=== PATIENT | male | born 1975 | race Caucasian/White ===

== ENCOUNTER 2019-10-31 07:34 | Emergency (ER) | payer OTHER ==
[2019-10-31 07:41] VITALS: BP 134/88; PULSE 76; TEMP 97.8; BMI 26.6
[2019-10-31] MEDS ORDERED: IBUPROFEN 400 MG TABLET (FP) PO ONE ×2 (07:55→07:59)
--- NOTE | 2019-10-31 08:05 | PDOC ---
History of Present Illness - General Chief Complaint: Injury Stated Complaint: FALL Time Seen by Provider: 10/31/19 07:46 History Source: Patient - History of Present Illness Occurred: reports: other Severity: reports: moderate Pain Location: reports: lower extremity Method of Injury: Yes: fall Past History - Past Medical History Allergies/Adverse Reactions: Allergies Allergy/AdvReac Type Severity Reaction Status Date / Time No Known Allergies Allergy Verified 10/31/19 07:41 Home Medications: Ambulatory Orders NK [No Known Home Medication] 10/31/19 COPD: No - Psycho Social/Smoking Cessation Hx Smoking Status: No Smoking History: Never smoked Number of Cigarettes Smoked Daily: 0 Review of Systems - Review of Systems Musculoskeletal: Yes: Joint Pain, Joint Swelling *Physical Exam - Vital Signs Last Vital Signs Temp Pulse Resp BP Pulse Ox 97.8 F 76 18 134/88 99 10/31/19 07:36 10/31/19 07:36 10/31/19 07:36 10/31/19 07:36 10/31/19 07:36 - Physical Exam General Appearance: Yes: Appropriately Dressed. No: Apparent Distress HEENT: positive: Normal Voice Neck: positive: Supple Respiratory/Chest: negative: Respiratory Distress Extremity: positive: Tender, Swelling (to lateral malleolus) Integumentary: positive: Dry, Warm Neurologic: positive: Fully Oriented, Alert, Normal Mood/Affect ED Treatment Course - RADIOLOGY Radiology Studies Ordered: Category Date Time Status ANKLE & FOOT-LEFT* [RAD] Stat Radiology 10/31/19 07:59 Ordered Medical Decision Making - Medical Decision Making 10/31/19 08:03 43-year-old male, no significant history, here with left ankle pain and swelling after trip and fall 3 days ago. States site was swollen initially but has been applying ice to area. States pain is getting worse. Has been bearing weight but very painful per patient not taking anything for pain see exam R/o ankle fx -pain control -XR 10/31/19 08:59 X-ray negative for fracture. John bandage placed in the ER. Crutches given. DC with supportive treatment and Ortho follow-up as needed Discharge - Discharge Information Problems reviewed: Yes Clinical Impression/Diagnosis: Ankle sprain Qualifiers: Encounter type: initial encounter Involved ligament of ankle: unspecified ligament Laterality: left Qualified Code(s): S93.402A - Sprain of unspecified ligament of left ankle, initial encounter Condition: Good Disposition: HOME - Follow up/Referral Referrals: Kane Duran MD [Staff Physician] - - Patient Discharge Instructions Patient Printed Discharge Instructions: Ankle Sprain Additional Instructions: Rest, elevate extremity, ice area and take motrin every 6 hrs as needed for pain If symptoms persist after 2 weeks, please follow up with DR Duran of orthopedics - Post Discharge Activity
== END 2019-10-31 09:04 | disposition home or self-care (01) ==
LOC: JER 07:34
DX: S93.402A Sprain of unspecified ligament of left ankle, initial encounter (principal); W18.39XA Other fall on same level, initial encounter; Y93.89 Activity, other specified; Y92.414 Local residential or business street as the place of occurrence of the external cause; Y99.8 Other external cause status
CPT/HCPCS: 73610-TC-LT-FY; 73630-TC-LT; 99283-25